=== PATIENT | female | born 1985 | race Caucasian/White ===

== ENCOUNTER 2020-09-29 19:32 | Emergency (ER) | payer SELFPAY ==
[~2020-09-29] VITALS: Ht 162.6 cm; Wt 90.0 kg
[2020-09-29] MEDS ORDERED: SODIUM CHLORIDE 0.9% 1,000 ML IV ONE (21:00)
[2020-09-29 23:58] LABS: BASOPHILS % 1.7 % (0.0-2.0); EOSINOPHILS % 0.2 % (0.0-5.0); HEMATOCRIT. 43.5 % (36.0-48.0); HEMOGLOBIN. 15.6 g/dL (12.0-16.0); LYMPHOCYTES % 44.4 % (20.0-50.0); MEAN CORPUSCULAR HEMOGLOBIN 33.6 pg (28.0-32.0); MEAN CORPUSCULAR VOLUME 93.6 fL (81.0-99.0); MEAN PLATELET VOLUME 7.7 fl (7.4-10.4); MONOCYTES % 3.1 % (2.0-8.0); NEUTROPHILS % 50.6 % (40.0-76.0); PLATELET 253 x1000/uL (130-400); RED BLOOD CELL COUNT 4.65 mill/uL (4.2-5.4); RED CELL DISTRIBUTION WIDTH 13.4 % (11.6-14.6)
[2020-09-30 00:02] LABS: CHLORIDE 103 mEq/L (98-107)
[2020-09-30 00:03] LABS: HCG SCREEN NEGATIVE
[2020-09-30 00:26] LABS: ETHANOL BLOOD 437 mg/dL
[2020-09-30 02:50] VITALS: BP 128/80
== END 2020-09-30 02:52 | disposition home or self-care (01) ==
LOC: ER 19:32
DX: F10.129 Alcohol abuse with intoxication, unspecified (principal); Y90.8 Blood alcohol level of 240 mg/100 ml or more; R03.0 Elevated blood-pressure reading, without diagnosis of hypertension
CPT/HCPCS: 36415; 70450; 80053; 80320; 84703; 85025; 93005; 96360; 99285; J7030; G0480